=== PATIENT | male | born 1950 | race Caucasian/White ===

== ENCOUNTER 2023-11-12 14:41 | Outpatient (CLI) | payer MEDICARE, BC | END 2023-11-12 14:42 | disposition home or self-care (01) | LOC: BICCT 14:41 | PROVIDERS: ATTEND Orthopaedic Surgery | DX: M17.11 Unilateral primary osteoarthritis, right knee (principal); M25.461 Effusion, right knee ==

== ENCOUNTER 2023-11-19 08:19 | Outpatient (CLI) | payer MEDICARE, BC ==
[2023-11-19 10:25] LABS: Bilirubin Negative (Negative); Blood, Urine Negative (Negative); Clarity Turbid (Clear); Glucose, Urine (Dipstick) Normal (Negative); Ketone, Urine Negative (Negative); Leukocyte 500 Leu/uL (Negative); Nitrite Negative (Negative); Protein, Urine (Dipstick) Negative (Neg-Trace); Specific Gravity, Urine 1.008 (1.002-1.036); Urobilinogen Normal mg/dL (Less than 2); pH, Urine 5.5 (5.0-9.0)
[2023-11-19 10:32] LABS: INR-International Normal Ratio 0.9; Prothrombin Time 12.3 sec (12.0-14.7)
== END 2023-11-19 08:20 | disposition home or self-care (01) ==
LOC: LABBT 08:19
PROVIDERS: ATTEND Orthopaedic Surgery
DX: Z01.818 Encounter for other preprocedural examination (principal)
CPT/HCPCS: 71046; 81003; 85610; 93005; 93010

== ENCOUNTER 2023-11-24 07:21 | Inpatient (IN) | payer MEDICARE, BC ==
[2023-11-19 08:42] VITALS: BMI 34.7
[2023-11-19 10:19] LABS: #Basophils 0.07 10x3/uL (0.0-0.2); %Basophils 1.1 % (0.0-1.0); %Eosinophils 2.7 % (0.0-10.0); %Monocytes 10.3 % (0.0-10.0); %Neutrophils 54.4 % (42.0-75.0); Hematocrit 42.3 % (42.0-52.0); Hemoglobin 14.1 g/dL (14.0-18.0); Mean Corpuscular HGB CONC 33.3 g/dL (32.0-36.0); Mean Corpuscular Hemoglobin 32.7 pg (27.0-31.0); Mean Corpuscular Volume 98.1 fL (78.0-98.0); Mean Platelet Volume 9.9 fL (7.4-10.4); Platelet Count 211 10x3/uL (130-400); RBC Distribution Width 14.1 % (11.5-14.5); Red Blood Cell (RBC) Count 4.31 mill/uL (4.70-6.10)
[2023-11-19 10:53] LABS: Anion Gap 12 mmol/L (10-20); BUN (Urea Nitrogen) 22 mg/dL (8.4-25.7); Calc. Creatinine Clearance 0 mL/min (70-130); Calcium 10.1 mg/dL (7.8-10.44); Carbon Dioxide 30 mmol/L (23-31); Chloride 103 mmol/L (98-107); Estimated GFR 67; Glucose 92 mg/dL (83-110); Potassium 4.4 mmol/L (3.5-5.1); Sodium 141 mmol/L (136-145)
[2023-11-24] MEDS ORDERED: PROPOFOL 20 ML ONE (07:31)
[2023-11-24] MEDS ORDERED: fentaNYL 50 mcg/mL 1 mL Vial ONE ×3 (07:31→11:40)
[2023-11-24] MEDS ORDERED: Tranexamic Acid 1,000 MG/10 ML VIAL ONE (07:54)
[2023-11-24] MEDS ORDERED: Sodium Chloride 0.9% 100 ML ONE (07:55)
[2023-11-24] MEDS ORDERED: Vancomycin (BATCH) 1.5 GM/300 ML BAG ONE (07:55)
[2023-11-24] MEDS ORDERED: Clindamycin/D5W 600 mg/50 ml Premix Bag ONE (08:31)
[2023-11-24] MEDS ORDERED: Zolpidem Tartrate 5 MG TAB PO PRN ×2 (08:45→10:56)
[2023-11-24] MEDS ORDERED: Ondansetron PF 4 MG/2 ML Vial IVP PRN ×2 (08:45→10:56)
[2023-11-24] MEDS ORDERED: Promethazine HCl 25 MG/ML VIAL IM PRN ×3 (08:45→11:10)
[2023-11-24] MEDS ORDERED: traMADol HCl 50 MG TAB PO PRN ×2 (08:45)
[2023-11-24] MEDS ORDERED: Ropivacaine 0.2% 550 ML 550 ML NERVE BLCK SCH (08:45)
[2023-11-24] MEDS ORDERED: Lidocaine 1% PF 5 ML VIAL ONE (09:02)
[2023-11-24] MEDS ORDERED: ePHEDrine Sulfate 50 MG/10 ML VIAL ONE (09:06)
[2023-11-24] MEDS ORDERED: Dexamethasone 20 MG/5 ML VIAL ONE (09:17)
[2023-11-24] MEDS ORDERED: PHENYLEPHRINE-NS 100 MCG/ML 10 ML SYRINGE ONE (09:22)
[2023-11-24] MEDS ORDERED: Bupivacaine PF 0.5% 30 ML VIAL ONE ×2 (09:35→11:30)
[2023-11-24] MEDS ORDERED: Ondansetron PF 4 MG/2 ML Vial ONE (10:21)
[2023-11-24] MEDS ORDERED: diphenhydrAMINE 25 MG CAP PO PRN (10:56)
[2023-11-24] MEDS ORDERED: Acetaminophen 325 MG TAB PO PRN (10:56)
[2023-11-24] MEDS ORDERED: Tranexamic Acid 1,000 MG in Sodium Chloride 0.9% 100 ML IVPB SCH (11:00)
[2023-11-24] MEDS ORDERED: Ondansetron HCl/PF 4 MG/2 ML Vial IVP PRN (11:10)
[2023-11-24] MEDS ORDERED: fentaNYL PF 100 MCG/2 ML SYRINGE ONE (11:23)
[2023-11-24] MEDS: Ketorolac Tromethamine 30 MG (1 mL) VIAL IVP SCH (12:49)
[2023-11-24] MEDS: Memantine 10 MG TAB PO SCH ×2 (12:50→20:50)
[2023-11-24] MEDS: HYDROcodone/Acetaminophen 10/325 mg Tablet PO PRN (12:50)
[2023-11-24] MEDS: Lisinopril 20 MG TAB PO SCH (12:51)
[2023-11-24] MEDS: Furosemide 20 MG TAB PO SCH (12:56)
[2023-11-24] MEDS: Clindamycin/D5W 900 MG in Premix 1 BAG IVPB SCH (15:52)
[2023-11-24] MEDS ORDERED: Rivastigmine 1.5 MG CAP PO SCH (17:00)
[2023-11-24] MEDS: Sodium Chloride 0.9% 1,000 ML IV SCH (19:38)
[2023-11-24] MEDS: Vancomycin (BATCH) 1.5 GM in Premix 1 BAG IVPB SCH (20:45)
[2023-11-24] MEDS: Rivastigmine 1.5 MG CAP PO SCH (20:48)
[2023-11-24] MEDS: Ferrous Gluconate 324 MG TAB PO SCH (20:50)
[2023-11-24] MEDS: Senokot S 8.6-50 MG TAB PO SCH (20:50)
[2023-11-24] MEDS: Aspirin 81 mg Enteric Coated Tablet PO SCH (20:51)
[2023-11-24] MEDS: Trospium 20 MG TAB PO SCH (20:51)
[2023-11-24] MEDS: Atorvastatin Calcium 40 MG TAB PO SCH (20:51)
[2023-11-25 05:27] LABS: Hematocrit 35.4 % (42.0-52.0); Hemoglobin 11.6 g/dL (14.0-18.0); Mean Corpuscular HGB CONC 32.8 g/dL (32.0-36.0); Mean Corpuscular Hemoglobin 31.7 pg (27.0-31.0); Mean Corpuscular Volume 96.7 fL (78.0-98.0); Mean Platelet Volume 10.2 fL (7.4-10.4); Platelet Count 199 10x3/uL (130-400); RBC Distribution Width 14.1 % (11.5-14.5); Red Blood Cell (RBC) Count 3.66 mill/uL (4.70-6.10)
[2023-11-25] MEDS: Furosemide 20 MG TAB PO SCH (08:40)
[2023-11-25] MEDS: Multivitamin W/ Minerals 1 TAB PO SCH (08:40)
[2023-11-25] MEDS: Lisinopril 20 MG TAB PO SCH (08:42)
[2023-11-25] MEDS ORDERED: Aspirin Chewable 81 MG TAB PO SCH (09:00)
[2023-11-25] MEDS ORDERED: Memantine 10 MG TAB PO SCH (09:00)
[2023-11-26 05:08] LABS: Hematocrit 31.1 % (42.0-52.0); Hemoglobin 10.4 g/dL (14.0-18.0); Mean Corpuscular HGB CONC 33.4 g/dL (32.0-36.0); Mean Corpuscular Hemoglobin 32.1 pg (27.0-31.0); Mean Platelet Volume 10.1 fL (7.4-10.4); Platelet Count 174 10x3/uL (130-400); RBC Distribution Width 14.3 % (11.5-14.5); Red Blood Cell (RBC) Count 3.24 mill/uL (4.70-6.10)
[2023-11-27] MEDS: HYDROcodone/Acetaminophen 10/325 mg Tablet PO PRN (01:36)
[2023-11-27 05:58] LABS: Hematocrit 31.8 % (42.0-52.0); Hemoglobin 10.2 g/dL (14.0-18.0); Mean Corpuscular HGB CONC 32.1 g/dL (32.0-36.0); Mean Corpuscular Hemoglobin 32.3 pg (27.0-31.0); Mean Corpuscular Volume 100.6 fL (78.0-98.0); Mean Platelet Volume 10.2 fL (7.4-10.4); Platelet Count 188 10x3/uL (130-400); RBC Distribution Width 14.2 % (11.5-14.5); Red Blood Cell (RBC) Count 3.16 mill/uL (4.70-6.10)
[2023-11-27] MEDS: fentaNYL 50 mcg/mL 1 mL Vial SLOW IVP PRN (08:59)
[2023-11-28 12:33] VITALS: BP 144/88; TEMP 98.6
== END 2023-11-28 15:03 | DRG 470 ==
LOC: SDC 07:21 → SURG B 12:03 → SDC 15:09 → OBSVTOIN 11-25 13:46
PROVIDERS: ADMIT Orthopaedic Surgery; ATTEND Orthopaedic Surgery
PROC: 0SRC0J9 Replacement of Right Knee Joint with Synthetic Substitute, Cemented, Open Approach (ICD-10-PCS; principal; 2023-11-24)
DX: M17.11 Unilateral primary osteoarthritis, right knee (principal); E78.00 Pure hypercholesterolemia, unspecified; I10 Essential (primary) hypertension; Z96.643 Presence of artificial hip joint, bilateral; Z98.890 Other specified postprocedural states; Z82.49 Family history of ischemic heart disease and other diseases of the circulatory system; Z83.3 Family history of diabetes mellitus; Z79.899 Other long term (current) drug therapy; Z88.2 Allergy status to sulfonamides; Z88.0 Allergy status to penicillin; D50.0 Iron deficiency anemia secondary to blood loss (chronic)
CPT/HCPCS: 36415; 80048; 85025; 85027; 86850; 86900; 86901; 87081; 96374; 96375; 96376; A4306; C1713; C1776; C1889; G0378; J0665; J1100; J1885; J2405; J2704; J2795; J3010; J3370; J3490

== ENCOUNTER 2024-03-04 15:01 | Outpatient (CLI) | payer MEDICARE, BC ==
[2024-03-04 16:01] LABS: #Basophils 0.04 10x3/uL (0.0-0.2); %Basophils 0.6 % (0.0-1.0); %Eosinophils 2.2 % (0.0-10.0); %Lymphocytes 29.7 % (21.0-51.0); %Monocytes 9.3 % (0.0-10.0); %Neutrophils 57.6 % (42.0-75.0); Hematocrit 39.7 % (42.0-52.0); Hemoglobin 13.3 g/dL (14.0-18.0); Mean Corpuscular HGB CONC 33.5 g/dL (32.0-36.0); Mean Corpuscular Hemoglobin 31.9 pg (27.0-31.0); Mean Corpuscular Volume 95.2 fL (78.0-98.0); Mean Platelet Volume 9.5 fL (7.4-10.4); Platelet Count 201 10x3/uL (130-400); RBC Distribution Width 14.1 % (11.5-14.5); Red Blood Cell (RBC) Count 4.17 mill/uL (4.70-6.10)
[2024-03-04 16:17] LABS: Anion Gap 12 mmol/L (10-20); BUN (Urea Nitrogen) 18 mg/dL (8.4-25.7); Calc. Creatinine Clearance 0 mL/min (70-130); Calcium 10.2 mg/dL (7.8-10.44); Carbon Dioxide 29 mmol/L (23-31); Chloride 103 mmol/L (98-107); Estimated GFR 61; Glucose 120 mg/dL (83-110); Potassium 4.2 mmol/L (3.5-5.1); Sodium 140 mmol/L (136-145)
== END 2024-03-04 15:02 | disposition home or self-care (01) ==
LOC: LABBT 15:01
PROVIDERS: ATTEND Orthopaedic Surgery Hand Surgery
DX: Z01.818 Encounter for other preprocedural examination (principal); G56.03 Carpal tunnel syndrome, bilateral upper limbs; G56.22 Lesion of ulnar nerve, left upper limb; G56.12 Other lesions of median nerve, left upper limb
CPT/HCPCS: 80048; 85025; 93005; 93010

== ENCOUNTER 2024-03-09 08:13 | Day surgery (SDC) | payer MEDICARE, BC ==
[2024-03-04 15:32] VITALS: BMI 33.7
[2024-03-09] MEDS ORDERED: PROPOFOL 20 ML ONE (09:57)
[2024-03-09] MEDS ORDERED: fentaNYL 50 mcg/mL 1 mL Vial ONE (09:57)
[2024-03-09] MEDS ORDERED: Rocuronium Bromide 10 MG/ML (10ML VIAL) ONE (09:58)
[2024-03-09] MEDS ORDERED: CEFAZOLIN 2 GM VIAL ONE (10:12)
[2024-03-09] MEDS ORDERED: Lidocaine 1% PF 5 ML VIAL ONE (10:36)
[2024-03-09] MEDS ORDERED: ePHEDrine Sulfate 50 MG/10 ML VIAL ONE (10:48)
[2024-03-09] MEDS ORDERED: PHENYLEPHRINE-NS 100 MCG/ML 10 ML SYRINGE ONE ×2 (10:55→14:20)
[2024-03-09] MEDS ORDERED: Bupivacaine PF 0.5% 30 ML VIAL ONE (14:20)
[2024-03-09] MEDS ORDERED: SUGAMMADEX SODIUM 200 MG/2 ML VIAL ONE (14:36)
[2024-03-09] MEDS ORDERED: HYDROcodone/Acetaminophen 10/325 mg Tablet ONE (15:36)
[2024-03-09] MEDS ORDERED: Erythromycin Base 0.5% Oint 1 GM TUBE R EYE SCH (15:45)
[2024-03-09] MEDS ORDERED: Gentamicin Ophth Soln 0.3% 5 ml Bottle R EYE SCH (17:00)
== END 2024-03-09 16:10 | disposition home or self-care (01) ==
LOC: SDC 08:13
PROVIDERS: ATTEND Orthopaedic Surgery Hand Surgery
PROC: 01N50ZZ Release Median Nerve, Open Approach (ICD-10-PCS; principal; 2024-03-09)
PROC: 01N40ZZ Release Ulnar Nerve, Open Approach (ICD-10-PCS; 2024-03-09)
DX: G56.03 Carpal tunnel syndrome, bilateral upper limbs (principal); G56.23 Lesion of ulnar nerve, bilateral upper limbs; G56.13 Other lesions of median nerve, bilateral upper limbs; M06.9 Rheumatoid arthritis, unspecified; I10 Essential (primary) hypertension; E78.00 Pure hypercholesterolemia, unspecified; G89.29 Other chronic pain; M10.9 Gout, unspecified; G58.7 Mononeuritis multiplex; M48.02 Spinal stenosis, cervical region; M19.041 Primary osteoarthritis, right hand; M19.042 Primary osteoarthritis, left hand; Z96.643 Presence of artificial hip joint, bilateral; Z98.890 Other specified postprocedural states; Z79.899 Other long term (current) drug therapy; Z88.0 Allergy status to penicillin; F17.220 Nicotine dependence, chewing tobacco, uncomplicated
CPT/HCPCS: 64708; 64718; 64721; A6223; C1713; J0665; J2704; J3010